=== PATIENT | male | born 1960 | race Caucasian/White ===

== ENCOUNTER 2021-11-26 13:23 | Emergency (ER) | payer SELFPAY ==
[~2021-11-26] VITALS: Ht 172.7 cm; Wt 100.0 kg
[2021-11-26 14:57] VITALS: BP 109/71
[2021-11-26 15:59] LABS: Mean Corpuscular Volume 90.6 fL (80.0-100.0)
[2021-11-26 16:10] LABS: Basophils % (manual) 0 (0.0-2.0); Blast Cells 0; Metamyelocytes % 0; Myelocytes % 0; Promyelocytes % 0; Reactive Lymphocytes 0
[2021-11-26 16:16] LABS: Albumin 2.6 g/dL (3.4-5.0); Calcium 8.4 mg/dL (8.5-10.1); Potassium 3.8 mmol/L (3.5-5.1)
[2021-11-26 16:19] LABS: Hemoglobin 12.9 g/dL (13.5-17.5); Mean Corpuscular Hgb Conc. 33.1 g/dL (32.0-36.0); Red Cell Distribution Width 13.1 % (11.8-14.3); White Blood Cell 9.4 10^3/uL (4.4-10.8)
[2021-11-26 16:20] LABS: BUN/Creatinine Ratio 18.9; Bilirubin, Total 0.4 mg/dL (0.2-1.0); Total Protein 7.5 g/dL (6.4-8.2); Uric Acid 6.5 mg/dL (3.5-7.2)
[2021-11-26 16:28] LABS: Urine Bacteria FEW /hpf (None Seen); Urine Blood 3+ /uL (Negative); Urine Hyaline Cast FEW /lpf (0 - 2); Urine Mucus FEW (None Seen); Urine WBC 105 /hpf (0 - 3)
[2021-11-26 16:39] LABS: Amphetamine Screen, Urine POSITIVE (NEGATIVE); Barbiturate Scree,Urine NEGATIVE (NEGATIVE); Benzodiazephine Screen, Urine NEGATIVE (NEGATIVE); Cannabinoid Screen, Urine POSITIVE (NEGATIVE); Cocaine Screen, Urine NEGATIVE (NEGATIVE); Opiate Scree,Urine POSITIVE (NEGATIVE); Phencyclidine Screen, Urine NEGATIVE (NEGATIVE)
[2021-11-26] MEDS ORDERED: cefTRIAXone SOD 1,000 MG VL IM ONE (16:45)
[2021-11-26] MEDS ORDERED: methylPREDNISolone SOD SUCC 125 MG/2 ML VL IM ONE (16:45)
[2021-11-26 17:10] LABS: Band Neutrophils % (manual) 1; Lymphocytes % (manual) 21 (10.0-50.0)
[2021-11-26 17:11] LABS: Eosinophils % (manual) 1 (0-7); Monocytes % (manual) 8 (0-12)
[2021-11-26] MEDS ORDERED: ACET-1080 PO (17:58)
[2021-11-26] MEDS ORDERED: PRED20TA2 PO (17:58)
[2021-11-26] MEDS ORDERED: CIPR-173 PO (18:03)
== END 2021-11-26 17:55 | disposition home or self-care (01) ==
LOC: ER 13:25
DX: M10.9 Gout, unspecified (principal); N39.0 Urinary tract infection, site not specified; I12.9 Hypertensive chronic kidney disease with stage 1 through stage 4 chronic kidney disease, or unspecified chronic kidney disease; N18.9 Chronic kidney disease, unspecified; F17.210 Nicotine dependence, cigarettes, uncomplicated
CPT/HCPCS: 36415; 73562; 73610; 80053; 80307; 80320; 81001; 84550; 85007; 85025; 85027; 96372; 99284; J0696; J2930

== ENCOUNTER 2023-07-21 12:57 | Emergency (ER) | payer MEDICAID ==
[~2023-07-21] VITALS: Ht 172.7 cm; Wt 97.9 kg
[~2023-07-21 12:57] MED LIST: ACET-1080 PO; APIX5TAB PO; CARV-214 PO; CIPR-173 PO; DOXY-448 PO; FURO1TAB33 PO; POTA8TAB38 PO; PRED20TA2 PO
[2023-07-21 14:32] LABS: Urine Bacteria None Seen /hpf (None Seen)
[2023-07-21 14:47] LABS: Urine Blood Negative /uL (Negative); Urine Clarity Clear (Clear); Urine Color Light-Yellow (Yellow); Urine Protein, UAD Negative (Negative); Urine Specific Gravity 1.008 (1.001-1.035); Urine Urobilinogen Normal (Negative); Urine WBC 1 /hpf (0 - 3)
[2023-07-21 14:58] LABS: Amphetamine Screen, Urine Pos (NEGATIVE); Barbiturate Scree,Urine Neg (NEGATIVE); Benzodiazephine Screen, Urine Neg (NEGATIVE); Cannabinoid Screen, Urine Neg (NEGATIVE); Cocaine Screen, Urine Neg (NEGATIVE); Opiate Scree,Urine Neg (NEGATIVE); Phencyclidine Screen, Urine Neg (NEGATIVE)
[2023-07-21 15:04] LABS: Basophils # (auto) 0 10 ^3/uL (0-0.2); Basophils % (auto) 0.5 % (0.0-2.0); Eosinophils # (auto) 0.2 10 ^3/uL (0-0.8); Eosinophils % (auto) 1.7 % (0.0-7.0); Hematocrit 40.4 % (41.0-53.0); Hemoglobin 13.6 g/dL (13.5-17.5); Lymphocytes # (auto) 0.8 10 ^3/uL (0.4-5.4); Lymphocytes % (auto) 8.4 % (10.0-50.0); Mean Corpuscular Hgb Conc. 33.6 g/dL (32.0-36.0); Mean Corpuscular Volume 98.2 fL (80.0-100.0); Monocytes # (auto) 1.1 10 ^3/uL (0-1.3); Monocytes % (auto) 12.2 % (0.0-12.0); Neutrophils # (auto) 7.2 10 ^3/uL (1.6-8.6); Neutrophils % (auto) 77.2 % (37.0-80.0); Nucleated Red Blood Cells % 0.1 %; Red Blood Cells 4.11 10^6/uL (4.5-5.90); Red Cell Distribution Width 14.5 % (11.8-14.3); White Blood Cell 9.4 10^3/uL (4.4-10.8)
[2023-07-21 15:11] LABS: Lipase 40 U/L (12-53)
[2023-07-21 15:12] LABS: Alanine Aminotransferase 24 U/L (7-40); Albumin 3.9 g/dL (3.2-4.8); Alkaline Phosphatase 126 U/L (46-116); Anion Gap 8 (5-15); Aspartate Aminotransferase 26 U/L (13-40); BUN/Creatinine Ratio 23.5 (10.0-20.0); Bilirubin, Total 1.4 mg/dL (0.2-1.0); Blood Urea Nitrogen 35 mg/dL (9-23); Calcium 9.2 mg/dL (8.7-10.4); Carbon Dioxide 26 mmol/L (20-30); Chloride 105 mmol/L (98-107); Glucose 101 mg/dL (74-106); Potassium 4.6 mmol/L (3.5-5.1); Sodium 139 mmol/L (136-145); Total Protein 6.5 g/dL (5.7-8.2)
[2023-07-21 15:33] LABS: Blood Alcohol < 3.0 mg/dL (<10)
[2023-07-21] MEDS ORDERED: CEPH500C PO (15:55)
[2023-07-21] MEDS ORDERED: BACIOIN15 TOP (15:55)
[2023-07-21] MEDS ORDERED: ACET500T58 PO (15:55)
[2023-07-21] MEDS ORDERED: BACDST PO (15:55)
[2023-07-21] MEDS: SULFAMETHOX W/TRIMETH(800/160MG) DS TAB PO ONE (15:56)
[2023-07-21] MEDS: cloNIDine HCL 0.1 MG TAB PO ONE ×3 (15:56→18:06)
[2023-07-21 15:59] VITALS: TEMP 97.5
[2023-07-21] MEDS: NEOMYCIN-BACITRACIN-POLYM UNITDOSE PKG TOP OINT TOP ONE (16:19)
[2023-07-21] MEDS ORDERED: CLON0.2T PO (17:59)
[2023-07-21 21:54] VITALS: BP 169/110; PULSE 72; RESP 18; O2SAT 95
[2023-07-21] MEDS: LABETALOL HCL 200 MG TAB PO ONE (22:02)
== END 2023-07-21 23:18 | disposition home or self-care (01) ==
LOC: ER 12:57
DX: L03.116 Cellulitis of left lower limb (principal); L03.115 Cellulitis of right lower limb; I11.0 Hypertensive heart disease with heart failure; I50.9 Heart failure, unspecified; F17.210 Nicotine dependence, cigarettes, uncomplicated; F15.10 Other stimulant abuse, uncomplicated; Z79.899 Other long term (current) drug therapy
CPT/HCPCS: 36415; 80053; 80307; 80320; 81001; 83605; 83690; 85025; 87040

== ENCOUNTER 2023-08-07 22:52 | Inpatient (IN) | payer MEDICAID ==
[~2023-08-07] VITALS: Ht 172.7 cm; Wt 101.1 kg
[~2023-08-07 22:52] MED LIST changes: +ACET500T58 PO; +BACDST PO; +BACIOIN15 TOP; +CEPH500C PO; +CLON0.2T PO
[2023-08-08 00:36] LABS: Basophils # (auto) 0 10 ^3/uL (0-0.2); Basophils % (auto) 0.7 % (0.0-2.0); Eosinophils # (auto) 0.5 10 ^3/uL (0-0.8); Eosinophils % (auto) 8.6 % (0.0-7.0); Hematocrit 40.3 % (41.0-53.0); Hemoglobin 13.4 g/dL (13.5-17.5); Lymphocytes # (auto) 0.9 10 ^3/uL (0.4-5.4); Lymphocytes % (auto) 16.1 % (10.0-50.0); Mean Corpuscular Hemoglobin 32.9 pg (28.0-32.0); Mean Corpuscular Hgb Conc. 33.3 g/dL (32.0-36.0); Mean Corpuscular Volume 98.8 fL (80.0-100.0); Neutrophils # (auto) 3.3 10 ^3/uL (1.6-8.6); Neutrophils % (auto) 57.6 % (37.0-80.0); Nucleated Red Blood Cells % 0.1 %; Red Blood Cells 4.08 10^6/uL (4.5-5.90); White Blood Cell 5.7 10^3/uL (4.4-10.8)
[2023-08-08 00:43] LABS: Alanine Aminotransferase 20 U/L (7-40); Albumin 3.3 g/dL (3.2-4.8); Alkaline Phosphatase 123 U/L (46-116); Anion Gap 9 (5-15); Aspartate Aminotransferase 23 U/L (13-40); BUN/Creatinine Ratio 22.2 (10.0-20.0); Bilirubin, Total 0.9 mg/dL (0.2-1.0); Blood Urea Nitrogen 42 mg/dL (9-23); Calcium 8.7 mg/dL (8.7-10.4); Carbon Dioxide 24 mmol/L (20-30); Chloride 108 mmol/L (98-107); Glucose 90 mg/dL (74-106); Potassium 4.1 mmol/L (3.5-5.1); Sodium 141 mmol/L (136-145); Total Protein 6.3 g/dL (5.7-8.2)
[2023-08-08] MEDS: hydrALAZINE HCL 20 MG/ML VL IV ONE (02:01)
[2023-08-08] MEDS: NITROGLYCERIN 2% OINT 1GM PKG TD ONE (02:03)
[2023-08-08] MEDS: ASPirin 325 MG TAB PO ONE (02:03)
[2023-08-08] MEDS: cloNIDine HCL 0.1 MG TAB PO ONE (02:03)
[2023-08-08] MEDS: AZITHROMYCIN 500MG/ 250ML 250 ML IV ONE (02:43)
[2023-08-08] MEDS ORDERED: hydrALAZINE HCL 20 MG/ML VL IV PRN (04:45)
[2023-08-08] MEDS ORDERED: MORPHINE SULFATE INJ 2 MG/ml SYRG IV PRN ×2 (04:45→05:00)
[2023-08-08] MEDS ORDERED: TEMAZEPAM 15 MG CAP PO PRN ×2 (04:45→05:00)
[2023-08-08] MEDS ORDERED: ONDANSETRON HCL 4 MG/2 ML VIAL IV PRN ×2 (04:45→05:00)
[2023-08-08] MEDS: FUROSEMIDE 40 MG/4 ML VIAL IV ONE (04:45)
[2023-08-08] MEDS ORDERED: NITROGLYCERIN 0.4 MG SL TAB SL PRN ×2 (04:45→05:00)
[2023-08-08] MEDS ORDERED: FUROSEMIDE 40 MG/4 ML VIAL IV ONE (04:45)
[2023-08-08] MEDS ORDERED: CARVEDILOL 12.5 MG TAB PO SCH (10:00)
[2023-08-08] MEDS ORDERED: LISINOPRIL 5 MG TAB PO SCH (10:00)
[2023-08-08] MEDS: ASPirin 81 mg TAB PO SCH (10:16)
[2023-08-08] MEDS: LISINOPRIL 5 MG TAB PO SCH (10:17)
[2023-08-08] MEDS: CARVEDILOL 12.5 MG TAB PO SCH (10:18)
[2023-08-08] MEDS: ASPirin 81 mg TAB ONE (10:18)
[2023-08-08 11:00] VITALS: PULSE 70; RESP 18; O2SAT 95
[2023-08-08 12:24] LABS: INR 1.08 (0.9-1.15); Prothrombin Time 11.4 sec (9.3-11.8)
[2023-08-08 14:25] LABS: Urine Bacteria None Seen /hpf (None Seen)
[2023-08-08 14:43] LABS: Sodium Urine 101 mmol/L (40-220)
[2023-08-08 14:49] LABS: Amphetamine Screen, Urine Pos (NEGATIVE); Barbiturate Scree,Urine Neg (NEGATIVE); Benzodiazephine Screen, Urine Neg (NEGATIVE); Cocaine Screen, Urine Neg (NEGATIVE)
[2023-08-08 14:50] LABS: Cannabinoid Screen, Urine Neg (NEGATIVE); Opiate Scree,Urine Neg (NEGATIVE); Phencyclidine Screen, Urine Neg (NEGATIVE)
[2023-08-08 14:55] LABS: COVID19 ANTIGEN SOFIA FIA NEGATIVE (NEGATIVE)
[2023-08-08 14:56] LABS: Rapid Influenza A Negative (Negative); Rapid Influenza B Negative (Negative)
[2023-08-08 14:58] LABS: Urine Blood 3+ /uL (Negative); Urine Clarity Clear (Clear); Urine Color Light-Yellow (Yellow); Urine Hyaline Cast FEW /lpf (0 - 2); Urine Protein, UAD 1+ (Negative); Urine Urobilinogen Normal (Negative); Urine WBC 19 /hpf (0 - 3); Urine pH 5.5 (5.0-9.0)
[2023-08-08] MEDS ORDERED: FUROSEMIDE 20 MG/2 ML VIAL IV SCH ×2 (18:00)
[2023-08-08] MEDS: FUROSEMIDE 40 MG/4 ML VIAL IV SCH (18:11)
[2023-08-08 21:18] VITALS: PULSE 70; RESP 18; O2SAT 95
[2023-08-08] MEDS: CARVEDILOL 3.125 MG TAB PO SCH (22:26)
[2023-08-08] MEDS: ENOXAPARIN SOD 100 MG/1 ML SYRINGE SC SCH (22:32)
[2023-08-08] MEDS: ATORVASTATIN 20 MG TAB ONE (22:53)
[2023-08-08] MEDS: ATORVASTATIN 20 MG TAB PO SCH (22:54)
[2023-08-09] VITALS (9 sets, daily range): BP systolic 136–167; BP diastolic 66–95; PULSE 67–75; RESP 18–22; TEMP 98–98.4; O2SAT 96–99
[2023-08-09 06:45] LABS: Basophils # (auto) 0 10 ^3/uL (0-0.2); Basophils % (auto) 0.7 % (0.0-2.0); Eosinophils # (auto) 0.5 10 ^3/uL (0-0.8); Eosinophils % (auto) 8.7 % (0.0-7.0); Hematocrit 38.1 % (41.0-53.0); Hemoglobin 12.9 g/dL (13.5-17.5); Lymphocytes # (auto) 0.9 10 ^3/uL (0.4-5.4); Lymphocytes % (auto) 16.3 % (10.0-50.0); Mean Corpuscular Hemoglobin 33.1 pg (28.0-32.0); Mean Corpuscular Hgb Conc. 33.9 g/dL (32.0-36.0); Mean Corpuscular Volume 97.8 fL (80.0-100.0); Monocytes # (auto) 0.9 10 ^3/uL (0-1.3); Monocytes % (auto) 16.2 % (0.0-12.0); Neutrophils # (auto) 3.1 10 ^3/uL (1.6-8.6); Neutrophils % (auto) 58.1 % (37.0-80.0); Nucleated Red Blood Cells % 0.1 %; Red Blood Cells 3.89 10^6/uL (4.5-5.90); Red Cell Distribution Width 14.4 % (11.8-14.3); White Blood Cell 5.4 10^3/uL (4.4-10.8)
[2023-08-09 07:20] LABS: Chloride 107 mmol/L (98-107); Potassium 4.8 mmol/L (3.5-5.1); Sodium 139 mmol/L (136-145)
[2023-08-09 07:21] LABS: Anion Gap 4 (5-15); Carbon Dioxide 28 mmol/L (20-30)
[2023-08-09 07:22] LABS: Calcium 8.4 mg/dL (8.5-10.1)
[2023-08-09 07:26] LABS: BUN/Creatinine Ratio 28.1 (10.0-20.0); Glucose 107 mg/dL (74-106)
[2023-08-09 07:27] LABS: Magnesium 1.9 mg/dL (1.6-2.6)
[2023-08-09 07:30] LABS: Blood Urea Nitrogen 55 mg/dL (9-23)
[2023-08-09] MEDS: amLODIPine BESYLATE 5 MG TAB PO SCH (09:18)
[2023-08-09] MEDS ORDERED: LISI-275 PO (09:51)
[2023-08-09] MEDS: NICOTINE 7MG/24HR TOPICAL PATCH TD SCH (10:00)
[2023-08-09] MEDS: BUMETANIDE 1mg/4ml VIAL (0.25mg/ml) IV SCH (19:09)
[2023-08-09] MEDS: APIXABAN 5 MG TAB PO SCH (20:58)
[2023-08-10] VITALS (7 sets, daily range): BP systolic 132–162; BP diastolic 72–96; PULSE 56–70; RESP 16–19; TEMP 36.6; O2SAT 94–98
[2023-08-10] MEDS: hydrALAZINE HCL 20 MG/ML VL IV PRN (01:08)
[2023-08-10 07:05] LABS: Chloride 106 mmol/L (98-107); Potassium 4.4 mmol/L (3.5-5.1); Sodium 139 mmol/L (136-145)
[2023-08-10 07:06] LABS: Anion Gap 8 (5-15); Calcium 8.6 mg/dL (8.5-10.1); Carbon Dioxide 25 mmol/L (20-30)
[2023-08-10 07:11] LABS: BUN/Creatinine Ratio 23.4 (10.0-20.0); Glucose 96 mg/dL (74-106)
[2023-08-10 07:12] LABS: Blood Urea Nitrogen 44 mg/dL (9-23); Magnesium 1.9 mg/dL (1.6-2.6)
[2023-08-10] MEDS: amLODIPine BESYLATE 5 MG TAB PO SCH (10:22)
[2023-08-10] MEDS ORDERED: BUME2TAB5 PO (12:55)
[2023-08-10] MEDS ORDERED: EMPA1TAB PO (12:55)
[2023-08-10] MEDS ORDERED: AMLO1TAB23 PO (13:05)
== END 2023-08-10 17:54 | disposition home or self-care (01) | DRG 137 ==
LOC: ER 22:52 → TELE 08-08 04:43 → ER 08-08 04:43 → TELE-E-ADS 08-08 23:59
PROVIDERS: ADMIT Internal Medicine; ATTEND Internal Medicine
DX: J15.69 Pneumonia due to other Gram-negative bacteria (principal); N17.0 Acute kidney failure with tubular necrosis; I21.A1 Myocardial infarction type 2; I50.23 Acute on chronic systolic (congestive) heart failure; I13.0 Hypertensive heart and chronic kidney disease with heart failure and stage 1 through stage 4 chronic kidney disease, or unspecified chronic kidney disease; I49.5 Sick sinus syndrome; J15.9 Unspecified bacterial pneumonia; I48.92 Unspecified atrial flutter; I48.91 Unspecified atrial fibrillation; Z79.01 Long term (current) use of anticoagulants; F15.10 Other stimulant abuse, uncomplicated; F10.10 Alcohol abuse, uncomplicated; N18.9 Chronic kidney disease, unspecified; I16.0 Hypertensive urgency; E66.9 Obesity, unspecified; I87.2 Venous insufficiency (chronic) (peripheral); F17.210 Nicotine dependence, cigarettes, uncomplicated; I07.1 Rheumatic tricuspid insufficiency; M10.9 Gout, unspecified; I34.0 Nonrheumatic mitral (valve) insufficiency; L97.929 Non-pressure chronic ulcer of unspecified part of left lower leg with unspecified severity; L97.919 Non-pressure chronic ulcer of unspecified part of right lower leg with unspecified severity; Z68.33 Body mass index [BMI] 33.0-33.9, adult; Z91.199 Patient's noncompliance with other medical treatment and regimen due to unspecified reason; Z95.810 Presence of automatic (implantable) cardiac defibrillator; Y90.0 Blood alcohol level of less than 20 mg/100 ml
CPT/HCPCS: 36415; 76775; 80048; 80053; 80307; 80320; 81001; 82570; 83036; 83735; 83880; 84300; 84443; 84484; 85025; 85610; 85730; 87081; 87426; 87804; 93005; 93306; 93970; 96365; 96372; 96375; 96376; G0378

== ENCOUNTER 2023-08-13 23:15 | Inpatient (IN) | payer MEDICAID ==
[~2023-08-13] VITALS: Ht 172.7 cm; Wt 80.5 kg
[~2023-08-13 23:15] MED LIST changes: -ACET-1080 PO; +AMLO1TAB23 PO; +BUME2TAB5 PO; -CEPH500C PO; -CIPR-173 PO; -CLON0.2T PO; -DOXY-448 PO; +EMPA1TAB PO; +LISI-275 PO; -PRED20TA2 PO
[2023-08-13 23:54] LABS: Basophils # (auto) 0.1 10 ^3/uL (0-0.2); Basophils % (auto) 0.7 % (0.0-2.0); Eosinophils # (auto) 0.3 10 ^3/uL (0-0.8); Eosinophils % (auto) 2.5 % (0.0-7.0); Hematocrit 42.7 % (41.0-53.0); Hemoglobin 14.5 g/dL (13.5-17.5); Lymphocytes # (auto) 0.2 10 ^3/uL (0.4-5.4); Lymphocytes % (auto) 1.8 % (10.0-50.0); Mean Corpuscular Hemoglobin 33.3 pg (28.0-32.0); Monocytes % (auto) 8.7 % (0.0-12.0); Neutrophils # (auto) 9.5 10 ^3/uL (1.6-8.6); Neutrophils % (auto) 86.3 % (37.0-80.0); Nucleated Red Blood Cells % 0.1 %; Red Blood Cells 4.36 10^6/uL (4.5-5.90); Red Cell Distribution Width 14.3 % (11.8-14.3)
[2023-08-14] VITALS (7 sets, daily range): BP systolic 111–147; BP diastolic 66–86; PULSE 68–70; RESP 17–22; TEMP 97.9–98.4; O2SAT 95–99
[2023-08-14 00:08] LABS: Alanine Aminotransferase 20 U/L (7-40); Albumin 3.6 g/dL (3.2-4.8); Alkaline Phosphatase 134 U/L (46-116); Anion Gap 3 (5-15); Aspartate Aminotransferase 24 U/L (13-40); Bilirubin, Total 1.5 mg/dL (0.2-1.0); Blood Urea Nitrogen 29 mg/dL (9-23); Calcium 8.7 mg/dL (8.7-10.4); Carbon Dioxide 24 mmol/L (20-30); Chloride 106 mmol/L (98-107); Glucose 121 mg/dL (74-106); Total Protein 6.8 g/dL (5.7-8.2)
[2023-08-14 00:13] LABS: Sodium 133 mmol/L (136-145)
[2023-08-14] MEDS ORDERED: DOCUSATE SOD 100 MG CAP PO PRN (01:00)
[2023-08-14] MEDS ORDERED: ACETAMINOPHEN 325 MG TAB PO PRN (01:00)
[2023-08-14] MEDS ORDERED: ONDANSETRON HCL 4 MG/2 ML VIAL IV PRN (01:00)
[2023-08-14] MEDS ORDERED: MORPHINE SULFATE INJ 2 MG/ml SYRG IV PRN ×2 (01:00→06:45)
[2023-08-14] MEDS: FUROSEMIDE 100 MG/10ML VIAL IV ONE (01:43)
[2023-08-14] MEDS: HYDROcodone-ACET 5/325MG TAB PO PRN (01:56)
[2023-08-14 04:48] LABS: Basophils # (auto) 0 10 ^3/uL (0-0.2); Basophils % (auto) 0.2 % (0.0-2.0); Eosinophils # (auto) 0.1 10 ^3/uL (0-0.8); Eosinophils % (auto) 0.5 % (0.0-7.0); Hematocrit 43.8 % (41.0-53.0); Hemoglobin 14.8 g/dL (13.5-17.5); Lymphocytes # (auto) 0.1 10 ^3/uL (0.4-5.4); Lymphocytes % (auto) 0.9 % (10.0-50.0); Mean Corpuscular Hgb Conc. 33.7 g/dL (32.0-36.0); Mean Corpuscular Volume 97.8 fL (80.0-100.0); Monocytes # (auto) 0.7 10 ^3/uL (0-1.3); Monocytes % (auto) 5.9 % (0.0-12.0); Neutrophils # (auto) 10.5 10 ^3/uL (1.6-8.6); Neutrophils % (auto) 92.5 % (37.0-80.0); Red Blood Cells 4.48 10^6/uL (4.5-5.90); Red Cell Distribution Width 14.6 % (11.8-14.3); White Blood Cell 11.4 10^3/uL (4.4-10.8)
[2023-08-14 05:05] LABS: Alanine Aminotransferase 20 U/L (7-40); Albumin 3.8 g/dL (3.2-4.8); Alkaline Phosphatase 141 U/L (46-116); Anion Gap 5 (5-15); Aspartate Aminotransferase 25 U/L (13-40); BUN/Creatinine Ratio 19.1 (10.0-20.0); Blood Urea Nitrogen 30 mg/dL (9-23); Calcium 8.9 mg/dL (8.7-10.4); Carbon Dioxide 26 mmol/L (20-30); Chloride 104 mmol/L (98-107); Glucose 125 mg/dL (74-106); Potassium 4.8 mmol/L (3.5-5.1); Sodium 135 mmol/L (136-145)
[2023-08-14 05:06] LABS: Bilirubin, Total 2.3 mg/dL (0.2-1.0); Total Protein 7.2 g/dL (5.7-8.2)
[2023-08-14] MEDS: SODIUM CHLOR 0.9% PF (SALINE LOCK) 10ML VIAL/SYR IV SCH (06:03)
[2023-08-14] MEDS ORDERED: NITROGLYCERIN 0.4 MG SL TAB SL PRN (06:45)
[2023-08-14] MEDS: hydrALAZINE HCL 20 MG/ML VL IV PRN (09:05)
[2023-08-14] MEDS: cefTRIAXone 1GM/50ML D5W 50 ML IV ONE (09:29)
[2023-08-14] MEDS: LISINOPRIL 20 MG TAB PO SCH (09:31)
[2023-08-14] MEDS: APIXABAN 5 MG TAB PO SCH (09:31)
[2023-08-14] MEDS: CARVEDILOL 3.125 MG TAB PO SCH ×2 (09:31→21:59)
[2023-08-14] MEDS: EMPAGLIFLOZIN 10 MG TAB PO SCH (09:32)
[2023-08-14] MEDS: FUROSEMIDE 40 MG/4 ML VIAL IV SCH (09:33)
[2023-08-14 09:38] LABS: Urine Bacteria FEW /hpf (None Seen); Urine Blood 3+ /uL (Negative); Urine Budding Yeast MODERATE /hpf (None Seen); Urine Clarity Cloudy (Clear); Urine Color Yellow (Yellow); Urine Hyaline Cast FEW /lpf (0 - 2); Urine Protein, UAD 2+ (Negative); Urine Specific Gravity 1.012 (1.001-1.035); Urine Urobilinogen Normal (Negative); Urine WBC 49 /hpf (0 - 3); Urine pH 5.5 (5.0-9.0)
[2023-08-14 09:42] LABS: Amphetamine Screen, Urine Pos (NEGATIVE); Barbiturate Scree,Urine Neg (NEGATIVE); Benzodiazephine Screen, Urine Neg (NEGATIVE); Cocaine Screen, Urine Neg (NEGATIVE)
[2023-08-14 09:43] LABS: Cannabinoid Screen, Urine Neg (NEGATIVE); Opiate Scree,Urine Neg (NEGATIVE); Phencyclidine Screen, Urine Neg (NEGATIVE)
[2023-08-14] MEDS ORDERED: FUROSEMIDE 40 MG/4 ML VIAL IV SCH (10:00)
[2023-08-14] MEDS: amLODIPine BESYLATE 5 MG TAB PO ONE (11:00)
[2023-08-14] MEDS: BUMETANIDE 2.5mg/10ml (0.25 mg/ml) INJ IV ONE (13:18)
[2023-08-14] MEDS: CARVEDILOL 3.125 MG TAB PO ONE (13:20)
[2023-08-14] MEDS ORDERED: APIX5TAB PO (14:48)
[2023-08-14] MEDS ORDERED: AMLO1TAB23 PO (14:48)
[2023-08-14] MEDS ORDERED: POTA15TA12 PO (14:48)
[2023-08-14] MEDS ORDERED: CEPH250C PO (14:48)
[2023-08-14] MEDS ORDERED: LISI-275 PO (14:48)
[2023-08-14] MEDS ORDERED: BUME2TAB5 PO (14:48)
[2023-08-14] MEDS ORDERED: CARV-214 PO (14:48)
[2023-08-14] MEDS: FLUCONAZOLE 100 MG TAB PO ONE (15:25)
[2023-08-14] MEDS: BUMETANIDE 2.5mg/10ml (0.25 mg/ml) INJ IV SCH (18:07)
[2023-08-15 01:00] VITALS: BP 113/72; PULSE 70; RESP 17; TEMP 98.4; O2SAT 95
[2023-08-15 05:00] VITALS: BP 135/77; PULSE 71; RESP 18; TEMP 98.2; O2SAT 94
[2023-08-15 06:50] LABS: Hematocrit 37.8 % (41.0-53.0); Hemoglobin 13.2 g/dL (13.5-17.5); Mean Corpuscular Volume 97.2 fL (80.0-100.0); Red Blood Cells 3.89 10^6/uL (4.5-5.90); Red Cell Distribution Width 13.9 % (11.8-14.3); White Blood Cell 3.4 10^3/uL (4.4-10.8)
[2023-08-15 07:04] LABS: Band Neutrophils % (manual) 0; Basophils % (manual) 0 (0.0-2.0); Blast Cells 0; Metamyelocytes % 0; Myelocytes % 0; Promyelocytes % 0; Reactive Lymphocytes 0
[2023-08-15 07:09] LABS: Alanine Aminotransferase 16 U/L (7-40); Albumin 3.2 g/dL (3.2-4.8); Alkaline Phosphatase 122 U/L (46-116); Anion Gap 4 (5-15); Aspartate Aminotransferase 19 U/L (13-40); BUN/Creatinine Ratio 21.4 (10.0-20.0); Blood Urea Nitrogen 34 mg/dL (9-23); Calcium 8.3 mg/dL (8.7-10.4); Carbon Dioxide 27 mmol/L (20-30); Chloride 103 mmol/L (98-107); Glucose 102 mg/dL (74-106); Magnesium 1.9 mg/dL (1.6-2.6); Potassium 4.1 mmol/L (3.5-5.1); Sodium 134 mmol/L (136-145)
[2023-08-15 08:00] VITALS: PULSE 70
[2023-08-15 08:10] LABS: Eosinophils % (manual) 5 (0-7); Lymphocytes % (manual) 14 (10.0-50.0); Monocytes % (manual) 22 (0-12); Platelet Estimate Adequate
[2023-08-15] MEDS: cefTRIAXone 1GM/50ML D5W 50 ML IV SCH (08:48)
[2023-08-15 08:55] VITALS: BP 137/92; PULSE 71; RESP 16; TEMP 98.7; O2SAT 93
[2023-08-15] MEDS: FLUCONAZOLE 100 MG TAB PO SCH (09:42)
[2023-08-15] MEDS: amLODIPine BESYLATE 5 MG TAB PO SCH (09:43)
[2023-08-15 13:52] VITALS: BP 156/91; PULSE 71; RESP 20; TEMP 98.3; O2SAT 97
== END 2023-08-15 16:08 | disposition home or self-care (01) | DRG 194 ==
LOC: EDBD 23:15 → ER 23:15 → TELE 08-14 06:44 → TELE-WESTW 08-14 10:52
PROVIDERS: ADMIT Internal Medicine; ATTEND Emergency Medicine
DX: I13.0 Hypertensive heart and chronic kidney disease with heart failure and stage 1 through stage 4 chronic kidney disease, or unspecified chronic kidney disease (principal); N17.9 Acute kidney failure, unspecified; I42.9 Cardiomyopathy, unspecified; I49.5 Sick sinus syndrome; I48.92 Unspecified atrial flutter; F15.10 Other stimulant abuse, uncomplicated; D72.829 Elevated white blood cell count, unspecified; I87.2 Venous insufficiency (chronic) (peripheral); I48.91 Unspecified atrial fibrillation; N39.0 Urinary tract infection, site not specified; F17.210 Nicotine dependence, cigarettes, uncomplicated; N18.30 Chronic kidney disease, stage 3 unspecified; I16.1 Hypertensive emergency; I08.1 Rheumatic disorders of both mitral and tricuspid valves; M10.9 Gout, unspecified; E66.9 Obesity, unspecified; Z91.199 Patient's noncompliance with other medical treatment and regimen due to unspecified reason; Z79.899 Other long term (current) drug therapy; Z79.1 Long term (current) use of non-steroidal anti-inflammatories (NSAID); Z79.01 Long term (current) use of anticoagulants; Z68.27 Body mass index [BMI] 27.0-27.9, adult; I50.23 Acute on chronic systolic (congestive) heart failure
CPT/HCPCS: 36415; 80053; 80307; 81001; 83735; 83880; 84484; 85007; 85025; 85027; 87081; 87086; 93005; 96365; 96375; 96376; G0378

== ENCOUNTER 2023-09-04 17:11 | Inpatient (IN) | payer MEDICAID ==
[~2023-09-04] VITALS: Ht 172.7 cm; Wt 84.7 kg
[~2023-09-04 17:11] MED LIST changes: -BACDST PO; -BACIOIN15 TOP; +CEPH250C PO; -FURO1TAB33 PO; +POTA15TA12 PO; -POTA8TAB38 PO
[2023-09-04 18:50] LABS: Basophils # (auto) 0 10 ^3/uL (0-0.2); Basophils % (auto) 0.7 % (0.0-2.0); Eosinophils # (auto) 0.5 10 ^3/uL (0-0.8); Eosinophils % (auto) 6.8 % (0.0-7.0); Hematocrit 41.3 % (41.0-53.0); Hemoglobin 14.4 g/dL (13.5-17.5); Lymphocytes # (auto) 1.2 10 ^3/uL (0.4-5.4); Lymphocytes % (auto) 16.9 % (10.0-50.0); Mean Corpuscular Hemoglobin 33.1 pg (28.0-32.0); Mean Corpuscular Hgb Conc. 34.9 g/dL (32.0-36.0); Mean Corpuscular Volume 94.8 fL (80.0-100.0); Neutrophils # (auto) 4.3 10 ^3/uL (1.6-8.6); Neutrophils % (auto) 61.6 % (37.0-80.0); Nucleated Red Blood Cells % 0.2 %; Red Blood Cells 4.35 10^6/uL (4.5-5.90); Red Cell Distribution Width 13.2 % (11.8-14.3); White Blood Cell 6.9 10^3/uL (4.4-10.8)
[2023-09-04 19:06] LABS: Alanine Aminotransferase 18 U/L (7-40); Albumin 3.7 g/dL (3.2-4.8); Alkaline Phosphatase 127 U/L (46-116); Anion Gap 12 (5-15); Aspartate Aminotransferase 17 U/L (13-40); BUN/Creatinine Ratio 23.2 (10.0-20.0); Blood Urea Nitrogen 42 mg/dL (9-23); Carbon Dioxide 18 mmol/L (20-30); Chloride 105 mmol/L (98-107); Glucose 118 mg/dL (74-106); Potassium 4.5 mmol/L (3.5-5.1); Sodium 135 mmol/L (136-145)
[2023-09-04 19:07] LABS: Bilirubin, Total 1.1 mg/dL (0.2-1.0); Total Protein 6.3 g/dL (5.7-8.2)
[2023-09-04] MEDS ORDERED: ACETAMINOPHEN 325 MG TAB PO PRN (21:45)
[2023-09-04] MEDS ORDERED: hydrALAZINE HCL 20 MG/ML VL IV PRN (21:45)
[2023-09-04] MEDS ORDERED: NITROGLYCERIN 0.4 MG SL TAB SL PRN (21:45)
[2023-09-04] MEDS ORDERED: ONDANSETRON HCL 4 MG/2 ML VIAL IV PRN (21:45)
[2023-09-04] MEDS ORDERED: DOCUSATE SOD 100 MG CAP PO PRN (21:45)
[2023-09-04] MEDS ORDERED: MORPHINE SULFATE INJ 2 MG/ml SYRG IV PRN (21:45)
[2023-09-04] MEDS: SODIUM CHLOR 0.9% PF (SALINE LOCK) 10ML VIAL/SYR IV SCH (22:00)
[2023-09-05] VITALS (9 sets, daily range): BP systolic 118–165; BP diastolic 71–116; PULSE 66–79; RESP 17–20; TEMP 96.6–98.2; O2SAT 93–97
[2023-09-05] MEDS: APIXABAN 5 MG TAB PO SCH (02:50)
[2023-09-05] MEDS: CARVEDILOL 3.125 MG TAB PO SCH (02:51)
[2023-09-05] MEDS ORDERED: FURO1TAB33 PO (03:08)
[2023-09-05 07:23] LABS: Alanine Aminotransferase 14 U/L (7-40); Alkaline Phosphatase 116 U/L (46-116); Anion Gap 13 (5-15); BUN/Creatinine Ratio 20.5 (10.0-20.0); Blood Urea Nitrogen 33 mg/dL (9-23); Calcium 8.9 mg/dL (8.7-10.4); Carbon Dioxide 18 mmol/L (20-30); Chloride 106 mmol/L (98-107); Glucose 108 mg/dL (74-106); Potassium 4.6 mmol/L (3.5-5.1); Sodium 137 mmol/L (136-145)
[2023-09-05 07:24] LABS: Albumin 3.5 g/dL (3.2-4.8); Aspartate Aminotransferase 13 U/L (13-40); Bilirubin, Total 1.2 mg/dL (0.2-1.0); Total Protein 6.3 g/dL (5.7-8.2)
[2023-09-05 07:36] LABS: Basophils # (auto) 0.1 10 ^3/uL (0-0.2); Basophils % (auto) 0.7 % (0.0-2.0); Eosinophils # (auto) 0.5 10 ^3/uL (0-0.8); Eosinophils % (auto) 5.8 % (0.0-7.0); Hematocrit 41.7 % (41.0-53.0); Hemoglobin 14.4 g/dL (13.5-17.5); Lymphocytes # (auto) 0.9 10 ^3/uL (0.4-5.4); Lymphocytes % (auto) 11.3 % (10.0-50.0); Mean Corpuscular Hemoglobin 33.3 pg (28.0-32.0); Mean Corpuscular Hgb Conc. 34.6 g/dL (32.0-36.0); Mean Corpuscular Volume 96.2 fL (80.0-100.0); Monocytes # (auto) 1.1 10 ^3/uL (0-1.3); Monocytes % (auto) 13.2 % (0.0-12.0); Neutrophils # (auto) 5.5 10 ^3/uL (1.6-8.6); Nucleated Red Blood Cells % 0.1 %; Red Blood Cells 4.33 10^6/uL (4.5-5.90); Red Cell Distribution Width 13.2 % (11.8-14.3)
[2023-09-05] MEDS: amLODIPine BESYLATE 5 MG TAB PO SCH (08:31)
[2023-09-05] MEDS: FUROSEMIDE 40 MG/4 ML VIAL IV SCH (08:32)
[2023-09-05 11:31] LABS: CRP High Sensitivity 0.81 mg/dL (<1.0); Magnesium 1.9 mg/dL (1.6-2.6)
[2023-09-05 15:05] LABS: Urine Bacteria None Seen /hpf (None Seen)
[2023-09-05 15:16] LABS: Urine Blood 2+ /uL (Negative); Urine Clarity Clear (Clear); Urine Color Colorless (Yellow); Urine Protein, UAD TRACE (Negative); Urine Specific Gravity 1.006 (1.001-1.035); Urine Urobilinogen Normal (Negative); Urine WBC 2 /hpf (0 - 3); Urine pH 5.5 (5.0-9.0)
[2023-09-05 15:22] LABS: Sodium Urine 104 mmol/L (40-220)
[2023-09-05 15:29] LABS: Amphetamine Screen, Urine Pos (NEGATIVE); Barbiturate Scree,Urine Neg (NEGATIVE); Benzodiazephine Screen, Urine Neg (NEGATIVE); Cocaine Screen, Urine Neg (NEGATIVE)
[2023-09-05 15:30] LABS: Cannabinoid Screen, Urine Neg (NEGATIVE); Creatinine, Urine 19.82 mg/dL (30.0-125.0); Opiate Scree,Urine Neg (NEGATIVE); Phencyclidine Screen, Urine Neg (NEGATIVE)
[2023-09-05] MEDS: HYDROcodone-ACET 5/325MG TAB PO PRN (21:19)
[2023-09-06] VITALS (8 sets, daily range): BP systolic 132–156; BP diastolic 80–99; PULSE 69–70; RESP 18–21; TEMP 97.3–98.5; O2SAT 94–98
[2023-09-06 05:54] LABS: Chloride 103 mmol/L (98-107); Potassium 4.8 mmol/L (3.5-5.1); Sodium 135 mmol/L (136-145)
[2023-09-06 05:55] LABS: Anion Gap 9 (5-15); Calcium 9.3 mg/dL (8.7-10.4); Carbon Dioxide 23 mmol/L (20-30)
[2023-09-06 06:00] LABS: BUN/Creatinine Ratio 20.9 (10.0-20.0); Blood Urea Nitrogen 31 mg/dL (9-23); Glucose 107 mg/dL (74-106)
[2023-09-06 06:01] LABS: Magnesium 1.9 mg/dL (1.6-2.6)
[2023-09-07] VITALS (7 sets, daily range): BP systolic 123–140; BP diastolic 76–87; PULSE 70–96; RESP 18–20; TEMP 98–100.2; O2SAT 93–100
[2023-09-07 09:13] LABS: Chloride 100 mmol/L (98-107); Potassium 4.8 mmol/L (3.5-5.1)
[2023-09-07 09:14] LABS: Anion Gap 7 (5-15); Calcium 9.3 mg/dL (8.5-10.1); Carbon Dioxide 23 mmol/L (20-30)
[2023-09-07 09:15] LABS: Sodium 130 mmol/L (136-145)
[2023-09-07 09:19] LABS: BUN/Creatinine Ratio 21.5 (10.0-20.0); Blood Urea Nitrogen 34 mg/dL (9-23); Glucose 109 mg/dL (74-106)
[2023-09-07 09:23] LABS: Hepatitis B Surface Antigen Negative (Negative)
[2023-09-07 09:45] LABS: Hepatitis C Antibody Negative (Negative)
[2023-09-07] MEDS: ATORVASTATIN 20 MG TAB PO SCH (22:02)
[2023-09-08 05:00] VITALS: BP 100/69; PULSE 71; RESP 18; TEMP 98.7; O2SAT 95
[2023-09-08 08:00] VITALS: PULSE 70; O2SAT 95
[2023-09-08] MEDS: FUROSEMIDE 20 MG TAB PO SCH (08:53)
[2023-09-08 09:00] VITALS: BP 125/80; PULSE 70; RESP 15; TEMP 98.3; O2SAT 92
[2023-09-08 13:00] VITALS: BP 117/74; PULSE 71; RESP 16; TEMP 97.8; O2SAT 94
== END 2023-09-08 11:00 | DRG 45 ==
LOC: EDBD 17:11 → ER 17:11 → TELE 21:48 → TELE-WESTW 21:48
PROVIDERS: ADMIT Nurse Practitioner Family; ATTEND Family Medicine
DX: I63.9 Cerebral infarction, unspecified (principal); N17.0 Acute kidney failure with tubular necrosis; I50.23 Acute on chronic systolic (congestive) heart failure; E43 Unspecified severe protein-calorie malnutrition; I48.91 Unspecified atrial fibrillation; I13.0 Hypertensive heart and chronic kidney disease with heart failure and stage 1 through stage 4 chronic kidney disease, or unspecified chronic kidney disease; I25.10 Atherosclerotic heart disease of native coronary artery without angina pectoris; N18.32 Chronic kidney disease, stage 3b; R47.1 Dysarthria and anarthria; F15.10 Other stimulant abuse, uncomplicated; F17.210 Nicotine dependence, cigarettes, uncomplicated; G81.91 Hemiplegia, unspecified affecting right dominant side; I07.1 Rheumatic tricuspid insufficiency; I25.2 Old myocardial infarction; Z79.01 Long term (current) use of anticoagulants; Z79.899 Other long term (current) drug therapy; Z82.0 Family history of epilepsy and other diseases of the nervous system; Z82.3 Family history of stroke; Z82.49 Family history of ischemic heart disease and other diseases of the circulatory system; Z95.0 Presence of cardiac pacemaker; Z91.199 Patient's noncompliance with other medical treatment and regimen due to unspecified reason; Z68.28 Body mass index [BMI] 28.0-28.9, adult
CPT/HCPCS: 36415; 70450; 70551; 71045; 80048; 80053; 80307; 81001; 82570; 83735; 83880; 83935; 84156; 84300; 84484; 85025; 86141; 86803; 87081; 87340; 92610; 93005; 93886; 96374; 97110; 97163; 97530; G0378